=== PATIENT | male | born 1935 | race Two or more races ===

== ENCOUNTER 2023-06-04 10:17 | Observation (INO) ==
[2023-06-04 11:00] LABS: Basophils # (auto) 0.06 K/uL (0.00-0.20); Basophils % (auto) 0.4 %; Eosinophils # (auto) 0.02 K/uL (0.00-0.50); Eosinophils % (auto) 0.1 %; Hematocrit (blood only) 41.1 % (42.0-52.0); Hemoglobin 13.3 g/dl (14.0-18.0); Immature Granulocytes # (auto) 0.05 K/uL (0.01-0.20); Immature Granulocytes % (auto) 0.4 %; Lymphocytes # (auto) 0.76 K/uL (1.20-3.40); Lymphocytes % (auto) 5.7 %; Mean Corpuscular Hemoglobin 29.5 pg (25.0-34.0); Mean Corpuscular Hgb Conc 32.4 g/dL (32.0-36.0); Mean Corpuscular Volume 91.1 fL (80.0-100.0); Mean Platelet Volume 11.4 fL (9.4-12.4); Monocytes # (auto) 0.94 K/uL (0.11-0.59); Neutrophils # (auto) 11.56 K/uL (1.40-6.50); Neutrophils % (auto) 86.4 %; Platelet Count 181 K/uL (130-400); RDW Coefficient of Variation 13.4 % (11.5-14.5); RDW Standard Deviation 44.9 fL (36.4-46.3); Red Blood Count 4.51 M/uL (4.70-6.10); White Blood Count 13.39 K/ul (4.8-10.8)
[2023-06-04 11:03] LABS: Appearance Urine Cloudy (Clear); Bacteria Urine Automated Negative (Negative); Bilirubin Urine Negative (Negative); Blood Urine 3+ (Negative); Color Urine Yellow; Glucose Urine UA 1+ (Negative); Ketones Urine Negative (Negative); Leukocyte Esterase Urine Negative (Negative); Nitrite Urine Negative (Negative); Protein Urine Negative (Negative); Specific Gravity Urine 1.019 (1.000-1.030); Urobilinogen Urine Negative (Negative); pH Urine 5.5 (4.5-7.5)
[2023-06-04 11:07] LABS: INR 1.1 (0.9-1.1); Partial Thromboplastin Ratio 1.1; Partial Thromboplastin Time 31 Seconds (21-31); Prothrombin Time 11.9 Seconds (9.0-12.0)
[2023-06-04] MEDS: SODIUM CHLORIDE 0.9% 500 ML IV ONE (11:12)
[2023-06-04 11:17] LABS: Albumin Level 4.2 gm/dl (3.4-5.0); BUN Creatinine Ratio 18.4 (10-20); Bilirubin Direct 0.2 mg/dl (0-0.2); Bilirubin,Total 0.6 mg/dl (0.2-1.0); Creatinine Clr Calc Pharmacy 43.2 ml/min; Est GFR (African American) 60.5 ml/min; Est GFR (Non-African American) 52.2 ml/min; Potassium 3.9 mmol/L (3.5-5.1); Total Protein 6.7 gm/dl (6.0-8.3)
--- NOTE | 2023-06-04 11:30 | CT Scan Report ---
CT SCAN OF THE BRAIN WITHOUT IV CONTRAST CLINICAL HISTORY: Nausea COMPARISON STUDY: No priors. TECHNIQUE: Unenhanced axial CT scan of the brain is performed from the vertex to the skull base. A do se lowering technique was utilized adhering to the principles of ALARA. FINDINGS: Brain parenchyma: There is age-related involutional change noting moderate subcortical and periventr icular microangiopathic disease. There is no hemorrhage, mass effect, or evidence of acute territoria l ischemia by CT criteria. Trejo-white matter differentiation is preserved. No extra-axial fluid colle ction is seen. Ventricles, sulci, cisterns: Prominent secondary to involutional change. Intracranial vasculature: There is atherosclerotic calcification of the cavernous carotid and vertebr al arteries. Calvarium: Unremarkable. Sinuses and mastoids: The visualized paranasal sinuses are clear. The mastoid air cells are well pneu matized. Orbits: The bony orbits are grossly intact. There are bilateral ocular lens implants. IMPRESSION: There is no hemorrhage, mass effect, or evidence of acute territorial ischemia by CT manjit timmons. ACT 112: Negative or not required by law. Electronically signed by: Umesh Dumont M.D. 06/04/2023 11:29 AM
[2023-06-04] MEDS: ONDANSETRON INJ 2 MG/ML 2 ML VIAL IV STA (11:45)
[2023-06-04 11:58] LABS: Mucus Urine Present (None Prsent); RBC Urine Automated >30 /hpf (0-4)
--- NOTE | 2023-06-04 12:10 | CT Scan Report ---
CT SCAN OF THE ABDOMEN AND PELVIS WITHOUT IV CONTRAST CLINICAL HISTORY: Right flank pain COMPARISON STUDY: Abdominal CT dated 07/26/2021. TECHNIQUE: CT scan of the abdomen and pelvis is performed from the lung bases to the proximal femora. Images are reviewed in the axial, sagittal, and coronal planes. IV contrast was not administered for this examination. A dose lowering technique was utilized adhering to the principles of ALARA. CT DOSE: 1632.76 mGy.cm FINDINGS: Lung bases: There is evidence of previous aortic valve surgery. The heart is enlarged noting a small pericardial effusion. The coronary arteries are densely calcified. There are calcified splenic granul omas. There are scattered calcified granulomas. Scarring/atelectasis is noted at both lung bases. No airspace consolidation or pleural effusion is identified. A small hiatal hernia is noted. Liver: The unenhanced liver is normal in size, contour, and attenuation. There is no intrahepatic hoang iary ductal dilatation. Gallbladder: Unremarkable. Spleen: Normal in size and attenuation. Pancreas: Unremarkable. Adrenal glands: Unremarkable. Kidneys: The unenhanced kidneys are normal in size. There is a 6 mm obstructing calculus protruding f rom the right vesicoureteral junction seen on image #291. This causes moderate to severe right hydrou reteronephrosis. There is associated right-sided perinephric stranding and fluid. No additional calcu li are identified in either kidney. There is no left-sided hydronephrosis. A 2 cm cyst is noted on th e left. Abdominal vasculature: There is advanced atherosclerotic calcification and mild ectasia of the abdomi nal aorta. Bowel: There are scattered colonic diverticula without CT evidence of acute diverticulitis. No bowel obstruction is seen. Mild fecal retention is noted throughout the colon. The appendix is well-visual ized and normal. Peritoneum: There is no intraperitoneal free air or abdominal ascites. There is a small fat-containin g umbilical hernia. Lymphadenopathy: None. Pelvic viscera: Evaluation of the pelvis is degraded by streak artifact from bilateral hip arthroplas ties. The prostate gland is markedly enlarged and heterogeneous. The bladder wall is thickened/trabec ulated indicating chronic outlet obstruction. Skeletal structures: The skeletal structures are osteopenic. Mild to moderate lumbosacral spondylosis is observed. No lytic or blastic lesions are seen. Bilateral hip arthroplasties are in place. IMPRESSION: 1. There is a 6 mm obstructing calculus protruding from the right vesicoureteral junction. This cause s moderate severe right-sided hydroureteronephrosis. 2. No additional calculi are identified in either kidney. 3. Cardiomegaly. 4. Additional findings as above. ACT 112: Negative or not required by law. Electronically signed by: Umseh Dumont M.D. 06/04/2023 12:08 PM
--- NOTE | 2023-06-04 12:48 | History & Physical Report ---
Date of Service June 04, 2023 Assessment & Plan (1) Nephrolithiasis: Plan: Patient's daughter Evelyn Oliveira for collateral and surgical consent can be reached at [phone] Obstructive Nephrolithiasis - CTA/P: 6mm obstructing R UVJ stone with mod-severe hydro. UA is not infected appearing. Pt has a leukocytosis without L shift. - WBC 14. Patient has had chills. Covered with Rocephin -Anticoagulation temporarily switched to heparin - Flomax, fluids ordered Urology consulted No SKYLAR Multimodal pain control, Zofran (2) BPH (benign prostatic hyperplasia): Plan: Bladder scan as needed. Finasteride continued. Flomax added (3) Diabetes mellitus with neuropathy: Plan: T2DM - Metformin held - n.p.o. When diet advanced DM2, basal bolus weight-based. Metformin held (4) Permanent atrial fibrillation: Plan: Permanent Afib, history of TAVR No known history of ischemic disease or heart failure - Switched to heparin while inpatient at next scheduled dosing (~9-10pm), resume Eliquis 5 twice daily on discharge -Was switched from carvedilol to amlodipine for blood pressure goal due to potential concern of mild lightheadedness No evidence of acute ischemia on admission. No chest pain, chest pressure. Patient denies syncope/presyncope/exertional angina or shortness of breath (5) S/P TAVR (transcatheter aortic valve replacement): (6) HTN (hypertension): Plan: HTN - Amlodipine, valsartan continued Patient is hypertensive 200s on reassessment. Pain control ordered, on reassessment if he remains significantly elevated --> labetelol x1 Plan DVT prophylaxis: Anticoagulated Disposition: PCU for IV beta-josephine availability CODE STATUS: DNR/DNI Diet: N.p.o. History of Present Illness Primary Care Provider: Janelle of [facility] is an 87-year-old male with a past medical history of BPH, hypertension, permanent A-fib on apixaban, and s/p TAVR [facility] resident. Woke up this morning with chills, nasuea, fatigue and R flank pain. History of kidney stone in January which was nonob structive at the time. Just moved here in March from [facility]. [place] normal yesterday NO chest pain or chest pressure No shortness of breath No dysuria. +polyuria. Hx of afib. Took blood thinner this morning. (took all AM meds) Hx of tavr. Denies heart failure, denies CO. Has not yet established with cardiology locally, would like an outpatient referral if possible. Medical History: Reviewed Medications: Reviewed. NKDA Surgical History: Reviewed Family history: Reviewed Allergies: Reviewed Social History: No tobacco use. No etoh. Code Status: DNR/DNI Daughter contact #: [phone] Evelyn Oliveira CThead: No acute findings EKG: afib, no acute ischemic change Allergies Allergy/AdvReac Type Severity Reaction Status Date / Time No Known Drug Allergies Allergy Verified 03/23/23 09:15 Home Medications Medication Instructions Recorded Confirmed Type alpha lipoic acid 600 mg tablet 600 mg PO DAILY 03/23/23 03/23/23 History amlodipine 5 mg tablet 5 mg PO DAILY 03/23/23 03/23/23 History apixaban 5 mg (74 tabs) tablets in 5 mg PO BID 03/23/23 03/23/23 History a dose pack (Eliquis) calcium carbonate-vitamin D3 PO DAILY 03/23/23 03/23/23 History [Calcium 600 with Vitamin D3] coenzyme Q10 60 mg capsule 60 mg PO BID 03/23/23 03/23/23 History diclofenac sodium 1 % topical gel 2 g topical TID 03/23/23 03/23/23 History finasteride 5 mg tablet 5 mg PO DAILY 03/23/23 03/23/23 History mecobalamin (vitamin B12) 500 mcg 500 mcg PO DAILY 03/23/23 03/23/23 History chewable tablet metformin 500 mg tablet 500 mg PO DAILY 03/23/23 03/23/23 History ondansetron HCl 4 mg tablet 4 mg PO Q8H 03/23/23 03/23/23 History sertraline 25 mg tablet 25 mg PO DAILY 03/23/23 03/23/23 History simvastatin 80 mg tablet 80 mg PO DAILY 03/23/23 03/23/23 History valsartan 160 mg tablet 160 mg PO DAILY 03/23/23 03/23/23 History Past Med/Surg History Surgical History S/P rotator cuff repair H/O nasal septoplasty S/P TAVR (transcatheter aortic valve replacement) (2021) Social History Smoking Status: Never smoker Preferred Language: Samoan Feels Safe at Home: Yes Physical Exam Physical Exam: General: Alert and oriented to name NAD. Cooperative. HEENT: Atraumatic, normocephalic. Vision and hearing intact Pulm: CTAB A&P. -wheezes, -rales, -rhonchi. Symmetrical chest rise. No increased work of breathing. No respiratory distress. Cardiac: RRR, -mrg. Radial pulses intact and symmetrical. Abdominal: Mild right lower quadrant abdominal discomfort on palpation, no rebound tenderness, no guarding nondistended, soft. BS present. Results & Data Results & Data Vital Signs (Past 12 Hours) Vital Signs Temp Pulse Pulse Resp BP BP Pulse Ox 06/04/23 12:24 66 06/04/23 11:54 69 13 195/91 H 96 06/04/23 10:20 36.5 C 80 14 196/81 H 98 O2 Del Method 06/04/23 12:24 06/04/23 11:54 Room Air 06/04/23 10:20 Room Air PG Care Time/CCT Total # of Minutes Spent Total Time Spent with Patient: Total time spent is greater than 50% in coordination of care (as documented) at patient's floor/unit and/or counseling patient: Coding Level of Care Code 03892 INT INP/OBS CARE 3/75MIN Diagnoses Nephrolithiasis N20.0 BPH (benign prostatic hyperplasia) N40.0 Diabetes mellitus with neuropathy E11.40 Permanent atrial fibrillation I48.21 S/P TAVR (transcatheter aortic valve replacement) Z95.2 HTN (hypertension) I10
[2023-06-04] MEDS: KETOROLAC TROMETHAMINE 15 MG/ML VIAL IV STA (13:09)
[2023-06-04] MEDS ORDERED: HYDROmorphone INJ 0.5 MG/0.5 ML SYR IV PRN (13:19)
[2023-06-04] MEDS ORDERED: GLUCOSE 10 TAB/TUBE PO PRN (13:19)
[2023-06-04] MEDS ORDERED: HYDROmorphone INJ 1 MG/ML SYRINGE IV PRN (13:19)
[2023-06-04] MEDS ORDERED: ACETAMINOPHEN 1,000 MG/100 ML VIAL IV PRN (13:19)
[2023-06-04] MEDS ORDERED: CARBOHYDRATES FOR HYPOGLYCEMIA PO PRN (13:19)
[2023-06-04] MEDS ORDERED: DEXTROSE 50% 50 ML SYRINGE IV PRN (13:19)
[2023-06-04] MEDS ORDERED: GLUCOSE 40% GEL 15 GM TUBE PO PRN (13:19)
[2023-06-04] MEDS ORDERED: GLUCAGON FOR INJ 1 MG VIAL SQ PRN (13:19)
[2023-06-04] MEDS ORDERED: Heparin IV Adult Wt-Based Low-Dose *NO* INITIAL Bolus Protocol IV SCH (13:30)
[2023-06-04] MEDS: LABETALOL HCL IV 5 MG/ML 20ML IV STA (13:59)
[2023-06-04] MEDS: TAMSULOSIN HCL 0.4 MG CAP PO ONE (14:12)
[2023-06-04] MEDS: PLASMA-LYTE A 1,000 ML IV SCH (14:13)
--- NOTE | 2023-06-04 14:32 | Emergency Department Note ---
History of Present Illness General Chief Complaint: Illness Stated Complaint: BP HIGH, 190/80 Time Seen by Provider: 06/04/23 10:32 History of Present Illness Provider Complaint: abdominal pain and flank pain Onset (ago): 2 day(s) Pain Consistency: constant Location: R flank Migration to: RLQ Severity: moderate Maximum Pain Intensity: 6 Current Pain Intensity: 6 Quality: + stabbing and + sharp Relieved By: + nothing Exacerbated By: + other (Urinating) Context: no foreign travel, no possible food poisoning, no sick contacts, no recent antibiotic use, no recent surgery/procedure or no recent injury Associated Symptoms: + nausea, + vomiting, + hematuria and + back pain; no diarrhea, no fever, no chills, no constipation, no hematemesis, no hematochezia, no melena, no headache, no chest pain and no breathing difficulty Home Medications Medication Instructions Recorded Confirmed Type alpha lipoic acid 600 mg tablet 600 mg PO DAILY 03/23/23 03/23/23 History amlodipine 5 mg tablet 5 mg PO DAILY 03/23/23 03/23/23 History apixaban 5 mg (74 tabs) tablets in 5 mg PO BID 03/23/23 03/23/23 History a dose pack (Eliquis) calcium carbonate-vitamin D3 PO DAILY 03/23/23 03/23/23 History [Calcium 600 with Vitamin D3] coenzyme Q10 60 mg capsule 60 mg PO BID 03/23/23 03/23/23 History diclofenac sodium 1 % topical gel 2 g topical TID 03/23/23 03/23/23 History finasteride 5 mg tablet 5 mg PO DAILY 03/23/23 03/23/23 History mecobalamin (vitamin B12) 500 mcg 500 mcg PO DAILY 03/23/23 03/23/23 History chewable tablet metformin 500 mg tablet 500 mg PO DAILY 03/23/23 03/23/23 History ondansetron HCl 4 mg tablet 4 mg PO Q8H 03/23/23 03/23/23 History sertraline 25 mg tablet 25 mg PO DAILY 03/23/23 03/23/23 History simvastatin 80 mg tablet 80 mg PO DAILY 03/23/23 03/23/23 History valsartan 160 mg tablet 160 mg PO DAILY 03/23/23 03/23/23 History Allergies Allergy/AdvReac Type Severity Reaction Status Date / Time No Known Drug Allergies Allergy Verified 03/23/23 09:15 Past Med/Surg History Medical History (Updated 06/04/23 @ 14:36 by Milind Partida MD) BPH (benign prostatic hyperplasia) Diabetes mellitus with neuropathy HTN (hypertension) Surgical History S/P rotator cuff repair H/O nasal septoplasty S/P TAVR (transcatheter aortic valve replacement) (2021) Social History Smoking Status: Never smoker Preferred Language: Japanese Feels Safe at Home: Yes Physical Exam 2 Vital Signs: Vital Signs - 24 hr 06/04/23 10:20 06/04/23 11:54 06/04/23 12:24 Temperature 36.5 C Temperature Source Temporal Artery Sc an Pulse Rate 80 66 Pulse Rate [Apical ] 69 Respiratory Rate 14 13 Respiratory Effort / Characteristics Non-Labored Respiratory Depth Normal Respiratory Patter n Regular Blood Pressure 196/81 H Blood Pressure [Le ft Arm] 195/91 H Blood Pressure Lucrecia n 119 Blood Pressure Lucrecia n [Left Arm] 125 Pulse Oximetry 98 96 Oxygen Delivery Me thod Room Air Room Air Sepsis New/Unexpla ined Change in Men vickie Status No Sepsis Action Take n by Nursing No Action Required 06/04/23 13:49 06/04/23 13:59 Temperature Temperature Source Pulse Rate 71 Pulse Rate [Apical ] 64 Respiratory Rate 13 Respiratory Effort / Characteristics Non-Labored Respiratory Depth Normal Respiratory Patter n Blood Pressure 182/83 H Blood Pressure [Le ft Arm] 182/83 H Blood Pressure Lucrecia n Blood Pressure Lucrecia n [Left Arm] 116 Pulse Oximetry 98 Oxygen Delivery Me thod Room Air Sepsis New/Unexpla ined Change in Men vickie Status Sepsis Action Take n by Nursing Physical Exam: Physical Exam GENERAL: She is oriented to person, place, and time. She appears well-developed and well-nourished. She does not appear distressed. HENT: Exam performed. -Head: Normocephalic and atraumatic. -Right Ear: External ear normal. No mastoid erythema -Left Ear: External ear normal. No mastoid erythema -Mouth/Throat: The oropharynx is clear and moist. No trismus in the jaw. No dental abscesses or uvula swelling. No oropharyngeal exudate or tonsillar abscesses. EYES: Conjunctivae and EOM are normal.Right eye exhibits no discharge. Left eye exhibits no discharge. No scleral icterus. NECK: Normal range of motion. Neck supple. No JVD present. No tracheal deviation and normal range of motion present. CV: Normal rate, irregular rhythm, normal heart sounds and intact distal pulses. There is no peripheral edema. Palpable radial pulses bue. PULM/CHEST: Effort normal and breath sounds normal. No respiratory distress. No stridor. She has no wheezes. She has no rales. -Chest Wall: She exhibits no tenderness. ABD: The abdomen is soft. Bowel sounds are normal. She has no distension. No mass is present. There is tenderness to the right lower quadrant. There is no rebound, no guarding. Right-sided CVA tenderness. MUSC/SKEL: Normal range of motion. There is no peripheral edema, tenderness or deformity. NEURO: Motor and sensation grossly intact. SKIN: Skin is warm and dry. She is not diaphoretic. PSYCH: She has a normal mood and affect. Behavior is normal. Judgment and thought content normal. Course Course 1032: The patient was evaluated in room B2. A complete history and physical exam was performed Cardiac monitoring: An order was placed for continuous cardiac monitoring. The monitor shows a rate of 60 with atrial fibrilation rhythm interpreted by me 1237: Vital signs stable. Labs within normal limits. Imaging shows a 6 mm stone at the right UVJ. Patient having too much pain. Patient will be admitted to medicine for pain control and for urology evaluation for possible removal of stone. Dr. Sam urology notified. Patient will be admitted to the [facility] hospitalist team. Administered Medications Parenteral Electrolytes (Plasma-Lyte A Ph 7.4) 1,000 mls @ 125 mls/hr IV .Q8H VEL Stop: 07/04/23 13:29 Last Admin: 06/04/23 14:13 Dose: 125 mls/hr Documented By: MADELINE Discontinued Medications Sodium Chloride (Nss) 500 mls @ 999 mls/hr IV .Q31M ONE Stop: 06/04/23 11:16 Last Infusion: 06/04/23 11:45 Dose: Infused Documented By: Admin: 06/04/23 11:12 Dose: 999 mls/hr Documented By: MADELINE Ketorolac Tromethamine (Ketorolac Tromethamine 15 Mg/Ml Vial) 15 mg IV NOW STA Stop: 06/04/23 12:33 Last Admin: 06/04/23 13:09 Dose: 15 mg Documented By: MADELINE Labetalol HCl (Labetalol Hcl Iv 5 Mg/Ml 20ml) 5 mg IV NOW STA Stop: 06/04/23 13:20 Last Admin: 06/04/23 13:59 Dose: 5 mg Documented By: MADELINE Co-signed By: TVAO Ondansetron HCl (Ondansetron Inj 2 Mg/Ml 2 Ml Vial) 4 mg IV NOW STA Stop: 06/04/23 10:47 Last Admin: 06/04/23 11:45 Dose: Not Given Documented By: MADELINE Tamsulosin HCl (Tamsulosin Hcl 0.4 Mg Cap) 0.4 mg PO NOW ONE Stop: 06/04/23 13:20 Last Admin: 06/04/23 14:12 Dose: 0.4 mg Documented By: MADELINE Medical Decision Making Laboratory Data Attestation: I reviewed the patient's lab results. 06/04/23 10:47 06/04/23 10:47 Lab Results 06/04/23 06/04/23 06/04/23 Range/Units 10:30 10:44 10:47 WBC 13.39 H (4.8-10.8) K/ul RBC 4.51 L (4.70-6.10) M/uL Hgb 13.3 L (14.0-18.0) g/dl Hct 41.1 L (42.0-52.0) % MCV 91.1 (80.0-100.0) fL MCH 29.5 (25.0-34.0) pg MCHC 32.4 (32.0-36.0) g/dL RDW Std Deviation 44.9 (36.4-46.3) fL RDW Coeff of Arnaud 13.4 (11.5-14.5) % Plt Count 181 (130-400) K/uL MPV 11.4 (9.4-12.4) fL Immature Gran % (Auto) 0.4 % Neut % (Auto) 86.4 % Lymph % (Auto) 5.7 % Hoke % (Auto) 7.0 % Eos % (Auto) 0.1 % Baso % (Auto) 0.4 % Neut # (Auto) 11.56 H (1.40-6.50) K/uL Lymph # (Auto) 0.76 L (1.20-3.40) K/uL [place] # (Auto) 0.94 H (0.11-0.59) K/uL Eos # (Auto) 0.02 (0.00-0.50) K/uL Baso # (Auto) 0.06 (0.00-0.20) K/uL Immature Gran # (Auto) 0.05 (0.01-0.20) K/uL PT 11.9 (9.0-12.0) Seconds INR 1.1 (0.9-1.1) APTT 31 (21-31) Seconds PTT Ratio 1.1 Sodium 137 (136-145) mmol/L Potassium 3.9 (3.5-5.1) mmol/L Chloride 103 (98-107) mmol/L Carbon Dioxide 29 (21-32) mmol/L Anion Gap 5 (3-11) BUN 23 (6-23) mg/dl Creatinine 1.25 (0.6-1.4) mg/dl Est Cr Clr Drug Dosing 43.2 ml/min Est GFR ( Amer) 60.5 ml/min Est GFR (Non-Af Amer) 52.2 ml/min BUN/Creatinine Ratio 18.4 (10-20) Glucose 215 H (70-99(Fasting)) mg/dl Calcium 9.0 (8.6-10.3) mg/dl Total Bilirubin 0.6 (0.2-1.0) mg/dl Direct Bilirubin 0.2 (0-0.2) mg/dl AST 19 (13-39) U/L ALT 14 (7-52) U/L Alkaline Phosphatase 69 (34-104) U/L Total Protein 6.7 (6.0-8.3) gm/dl Albumin 4.2 (3.4-5.0) gm/dl Lipase 15 (11-82) U/L Urine Color Yellow Urine Appearance Cloudy A (Clear) Urine pH 5.5 (4.5-7.5) Ur Specific [place] 1.019 (1.000-1.030) Urine Protein Negative (Negative) Urine Glucose (UA) 1+ H (Negative) Urine Ketones Negative (Negative) Urine Blood 3+ H (Negative) Urine Nitrite Negative (Negative) Urine Bilirubin Negative (Negative) Urine Urobilinogen Negative (Negative) Ur Leukocyte Esterase Negative (Negative) Urine WBC (Auto) 1-5 (0-5) /hpf Urine RBC (Auto) >30 H (0-4) /hpf U Hyaline Cast (Auto) 1-5 (0-5) /lpf U Epithel Cells (Auto) 5-10 H (0-5) /lpf Urine Bacteria (Auto) Negative (Negative) Urine Mucus Present A (None Prsent) Urine Yeast Not Reportable Imaging Data Radiologist's Impression: Abdomen/Pelvis CT 06/04/23 10:47 CT SCAN OF THE ABDOMEN AND PELVIS WITHOUT IV CONTRAST CLINICAL HISTORY: Right flank pain COMPARISON STUDY: Abdominal CT dated 07/26/2021. TECHNIQUE: CT scan of the abdomen and pelvis is performed from the lung bases to the proximal femora. Images are reviewed in the axial, sagittal, and coronal planes. IV contrast was not administered for this examination. A dose lowering technique was utilized adhering to the principles of ALARA. CT DOSE: 1632.76 mGy.cm FINDINGS: Lung bases: There is evidence of previous aortic valve surgery. The heart is enlarged noting a small pericardial effusion. The coronary arteries are densely calcified. There are calcified splenic granulomas. There are scattered calcified granulomas. Scarring/atelectasis is noted at both lung bases. No airspace consolidation or pleural effusion is identified. A small hiatal hernia is noted. Liver: The unenhanced liver is normal in size, contour, and attenuation. There is no intrahepatic biliary ductal dilatation. Gallbladder: Unremarkable. Spleen: Normal in size and attenuation. Pancreas: Unremarkable. Adrenal glands: Unremarkable. Kidneys: The unenhanced kidneys are normal in size. There is a 6 mm obstructing calculus protruding from the right vesicoureteral junction seen on image #291. This causes moderate to severe right hydroureteronephrosis. There is associated right-sided perinephric stranding and fluid. No additional calculi are identified in either kidney. There is no left-sided hydronephrosis. A 2 cm cyst is noted on the left. Abdominal vasculature: There is advanced atherosclerotic calcification and mild ectasia of the abdominal aorta. Bowel: There are scattered colonic diverticula without CT evidence of acute diverticulitis. No bowel obstruction is seen. Mild fecal retention is noted throughout the colon. The appendix is well-visualized and normal. Peritoneum: There is no intraperitoneal free air or abdominal ascites. There is a small fat-containing umbilical hernia. Lymphadenopathy: None. Pelvic viscera: Evaluation of the pelvis is degraded by streak artifact from bilateral hip arthroplasties. The prostate gland is markedly enlarged and heterogeneous. The bladder wall is thickened/trabeculated indicating chronic outlet obstruction. Skeletal structures: The skeletal structures are osteopenic. Mild to moderate lumbosacral spondylosis is observed. No lytic or blastic lesions are seen. Bilateral hip arthroplasties are in place. IMPRESSION: 1. There is a 6 mm obstructing calculus protruding from the right vesicoureteral junction. This causes moderate severe right-sided hydroureteronephrosis. 2. No additional calculi are identified in either kidney. 3. Cardiomegaly. 4. Additional findings as above. ACT 112: Negative or not required by law. Electronically signed by: Umesh Dumont M.D. 06/04/2023 12:[address] 06/04/23 10:47 CT SCAN OF THE BRAIN WITHOUT IV CONTRAST CLINICAL HISTORY: Nausea COMPARISON STUDY: No priors. TECHNIQUE: Unenhanced axial CT scan of the brain is performed from the vertex to the skull base. A dose lowering technique was utilized adhering to the principles of ALARA. FINDINGS: Brain parenchyma: There is age-related involutional change noting moderate subcortical and periventricular microangiopathic disease. There is no hemorrhage, mass effect, or evidence of acute territorial ischemia by CT criteria. Trejo-white matter differentiation is preserved. No extra-axial fluid collection is seen. Ventricles, sulci, cisterns: Prominent secondary to involutional change. Intracranial vasculature: There is atherosclerotic calcification of the cavernous carotid and vertebral arteries. Calvarium: Unremarkable. Sinuses and mastoids: The visualized paranasal sinuses are clear. The mastoid air cells are well pneumatized. Orbits: The bony orbits are grossly intact. There are bilateral ocular lens implants. IMPRESSION: There is no hemorrhage, mass effect, or evidence of acute territorial ischemia by CT criteria. ACT 112: Negative or not required by law. Electronically signed by: Umesh Dumont M.D. 06/04/2023 11:29 AM ECG Data Attestation: I personally reviewed and interpreted this ECG as follows: Indication: abdominal pain Rate (beats per minute): 74 Rhythm: atrial fibrillation Findings: no ST depression, no ST elevation or no prolonged QT [facility] Narrative 1032: The patient was evaluated in room B2. A complete history and physical exam was performed Cardiac monitoring: An order was placed for continuous cardiac monitoring. The monitor shows a rate of 60 with atrial fibrilation rhythm interpreted by me 1237: Vital signs stable. Labs within normal limits. Imaging shows a 6 mm stone at the right UVJ. Patient having too much pain. Patient will be admitted to medicine for pain control and for urology evaluation for possible removal of stone. Dr. Sam urology notified. Patient will be admitted to the [facility] hospitalist team. Impression & Plan Hydronephrosis with renal calculous obstruction Discharge Plan Visit Data Chief Complaint: Illness Stated Complaint: BP HIGH, 190/80 ED Provider: Milind Partida Discharge Problem: Hydronephrosis with renal calculous obstruction Patient Disposition: Admitted As Inpatient Forms Stand Alone Forms: My [facility] [address] Prescriptions Prescriptions: No Action simvastatin 80 mg tablet 80 mg PO DAILY finasteride 5 mg tablet 5 mg PO DAILY calcium carbonate-vitamin D3 [Calcium 600 with Vitamin D3] PO DAILY Eliquis 5 mg (74 tabs) tablets,dose pack 5 mg PO BID amlodipine 5 mg tablet 5 mg PO DAILY sertraline 25 mg tablet 25 mg PO DAILY metformin 500 mg tablet 500 mg PO DAILY ondansetron HCl 4 mg tablet 4 mg PO Q8H valsartan 160 mg tablet 160 mg PO DAILY mecobalamin (vitamin B12) 500 mcg tablet,chewable 500 mcg PO DAILY diclofenac sodium 1 % gel 2 g topical TID Rx Instructions: apply to single elbow, wrist or hand; for hand includes palm/fingers/back of hand coenzyme Q10 60 mg capsule 60 mg PO BID alpha lipoic acid 600 mg tablet 600 mg PO DAILY Referrals Referrals: [facility]elle [place] [Primary Care Provider] -
[2023-06-04] MEDS: cefTRIAXone SODIUM 1,000 MG in DEXTROSE 5 % MINI-B 50 ML IV SCH (14:33)
[2023-06-04] MEDS ORDERED: LABETALOL HCL IV 5 MG/ML 20ML IV PRN (15:30)
--- NOTE | 2023-06-04 18:22 | Urology Consultation ---
Date of Consultation June 04, 2023 Assessment & Plan (1) Nephrolithiasis: (2) Gross hematuria: (3) Hydronephrosis with renal calculous obstruction: (4) S/P TAVR (transcatheter aortic valve replacement): Plan Patient seen in the ER. Has a 5 mm obstructing stone in the very distal portion of the ureter with partial projection into the bladder. Causing considerable hydronephrosis with significant signs of perinephric stranding and irritation. Patient is on blood thinner. Has had some blood in the urine. Had been worked up for gross hematuria approximately [address] Paige. At the time had been found to have a 5 mm stone in the kidney. Patient recently lost his and has been under a great deal of stress per the patient's daughter. Extensive conversation with patient's daughter after the visit. Patient has been dealing with some mild confusion in the ER has been frustrated due to waiting on a bed for the floor. Is getting admitted on broad- spectrum antibiotics. A conversation was had afterwards which did help alleviate some of the stress. Discussed different options for the intervention and treatment of the stone if necessary. Patient's imaging was reviewed interpreted by myself. Significant hydronephrosis and perinephric swelling of the right kidney with stone in the very distal portion of the right ureter with a portion of the stone appearing to be very projecting into the bladder. Consistent with the previous stone seen on prior imaging. Reviewed extensively patient's ongoing issues. Is not having severe pain at this point. Has not had major fevers or chills. All vitals were reviewed. Current pulse is 62 blood pressure 166/75 temperature was 36.5 and was satting 100% on room air. All labs were reviewed pertinent values in the HPI or plan section. White count was 13.39. Creatinine was 1.25. PSA from April was 1.242. Hemoglobin was 13.3. Extensive conversation about different options with both the patient and then afterwards with the patient's daughter. Extensively reviewed options. Patient's other daughter is in the area and will be helping with medical decision making especially if the procedure is eventually needed. Did discuss different options if patient becomes acutely febrile decompensates or develops signs of sepsis or other major issue could consider moving more urgently for intervention. Did discuss maximum expulsion therapy and possible passage. With the size and location of the stone would have a very high chance for passing of the bladder once in the bladder would likely be able to be avoided off without major issue. Did extensively review this with patient. Discussed possibly blood in the urine and other issues. Reviewed different options moving forward. Multiple questions answered. Will plan for supportive care. Will plan for hydration and monitoring. Did discuss different options for management of stone. Discussed options for conservative measure and maximum expulsion medical therapy and symptom controlled. Discussed ESWL. Discussed Ureteroscopy with extraction and/or laser lithotripsy. Risks and benefits were discussed. Stone free rates were also discussed as well as possibility of multiple procedures. Ureteral stents were discussed as well as post-operative issues and pain management. All questions were answered. Reviewed options moving forward. Will plan for observation. Patient is admitted and will be likely monitored on the floor. Will be n.p.o. after midnight for possible procedure tomorrow if stone does not appear to pass within the next few hours. Discussed possibly being able to do the procedure under sedation due to the location possibly able to be grasped without need for extensive ureteroscopy. I discussed risk related to anesthesia specifically with the patient's known memory/dementia issues. Patient complicated medical and surgical history was reviewed and summarized above imaging was reviewed interpreted by myself and the labs vitals were reviewed with pertinent values in HPI plan section. Plan continue to monitor. History of Present Illness Attending Physician: Dima Turner MD History of Present Illness New consultation for patient with stone, discomfort, obstruction, and ill feelings. Patient developed sudden onset of pain into flank going down and radiating into groin and back in waves comes and goes. Can be severe at times. Patient does have some baseline dementia issues. His had recently approximately month ago. Has been under a lot of stress. Spoke extensively with the patient's daughter after meeting with the patient. Spoke to her via phone as she is in [place] visiting and another relative. Patient's other daughter is in the area right now and her phone number is available for further information. Discussed and reviewed patient's family history for any history of stone disease. Also, discussed patient's medical surgery history especially related to any history of urinary issues or stone disease. Patient was admitted and is undergoing observation. Allergies Allergy/AdvReac Type Severity Reaction Status Date / Time No Known Drug Allergies Allergy 0 Verified 06/04/23 16:36 Home Medications Medication Instructions Recorded Confirmed Type acetaminophen 325 mg tablet 650 mg PO Q4 PRN Fever Or Pain 06/04/23 06/04/23 History (Tylenol) apixaban 5 mg tablet (Eliquis) 5 mg PO BID 06/04/23 06/04/23 History buspirone 5 mg tablet 5 mg PO BID 06/04/23 06/04/23 History diclofenac sodium 1 % topical gel 2 g topical QID PRN Pain 06/04/23 06/04/23 History finasteride 5 mg tablet 5 mg PO QAM 06/04/23 06/04/23 History metformin 500 mg tablet 500 mg PO QAM 06/04/23 06/04/23 History [id number] 1 tab PO DAILY 06/04/23 06/04/23 History tablet (Multivitamin 50 Plus tablet) ondansetron HCl 4 mg tablet 4 mg PO Q8 PRN Nausea 06/04/23 06/04/23 History sertraline 25 mg tablet 25 mg PO HS 06/04/23 06/04/23 History simvastatin 80 mg tablet 80 mg PO HS 06/04/23 06/04/23 History solifenacin 5 mg tablet 5 mg PO HS 06/04/23 06/04/23 History valsartan 160 mg tablet 160 mg PO QAM 06/04/23 06/04/23 History Patient History Medical History BPH (benign prostatic hyperplasia) Diabetes mellitus with neuropathy HTN (hypertension) Surgical History S/P rotator cuff repair H/O nasal septoplasty S/P TAVR (transcatheter aortic valve replacement) (2021) Social History Smoking Status: Never smoker Preferred Language: [place] Citizen Feels Safe at Home: Yes Review of Systems Review of Systems: All systems reviewed & are unremarkable except as noted in HPI & below and Other (Limited due to dementia history.) Physical Exam Physical Exam: General: Alert and oriented in no acute distress. Baseline memory issues with dementia. Mild ongoing confusion issues. HEENT: Normocephalic Atraumatic. Inspection normal. Cranial Nerves 2-12 Grossly intact. Nares are clear. Neck is supple. Normal inspection of face. Normal inspection of neck. Neurologic: No deficits on inspection. Baseline for motor function and sensory. Psychologic: Normal affect with episodes of mild confusion and baseline dementia issues. Respiratory: Nonlabored. No use of accessory muscles. No tachypnea or dyspnea. Cardiovascular: No tachycardia Skin: [place] and Dry. No rashes or visible lesions. Extremities: Moving without issues. No motor deficits on inspection Lymphatics: No edema Abdomen: Soft Non-distended. No rebound or guarding. Results & Data Vital Signs (Past 12 Hours) Vital Signs Temp Pulse Pulse Resp BP BP Pulse Ox 06/04/23 17:04 62 18 166/75 H 06/04/23 16:25 59 L 06/04/23 15:19 59 L 18 100 06/04/23 15:19 59 L 18 168/66 H 100 06/04/23 14:31 63 168/82 H 06/04/23 13:59 71 182/83 H 06/04/23 13:49 64 13 182/83 H 98 06/04/23 12:24 66 06/04/23 11:54 69 13 195/91 H 96 06/04/23 10:20 36.5 C 80 14 196/81 H 98 O2 Del Method 06/04/23 17:04 06/04/23 16:25 06/04/23 15:19 Room Air 06/04/23 15:19 Room Air 06/04/23 14:31 06/04/23 13:59 06/04/23 13:49 Room Air 06/04/23 12:24 06/04/23 11:54 Room Air 06/04/23 10:20 Room Air PG Care Time/CCT Total # of Minutes Spent Total Time Spent with Patient: Total time spent is greater than 50% in coordination of care (as documented) at patient's floor/unit and/or counseling patient: Coding Level of Care Code 98310 INT INP/OBS CARE 375MIN Diagnoses Nephrolithiasis N20.0 Gross hematuria R31.0 Hydronephrosis with renal calculous obstruction N13.2 S/P TAVR (transcatheter aortic valve replacement) Z95.2
[2023-06-04] MEDS: INSULIN ASPART PER UNIT CHARGE SC SCH (19:20)
[2023-06-04] MEDS: HEPARIN SODIUM/DEXTROSE 25,000 UNITS/500 ML BAG IV SCH (22:13)
[2023-06-04] MEDS: LANTUS PER UNIT CHARGE SQ SCH (22:18)
[2023-06-05 04:42] LABS: Basophils # (auto) 0.06 K/uL (0.00-0.20); Basophils % (auto) 0.9 %; Eosinophils # (auto) 0.14 K/uL (0.00-0.50); Hematocrit (blood only) 33.8 % (42.0-52.0); Hemoglobin 11.1 g/dl (14.0-18.0); Immature Granulocytes # (auto) 0.03 K/uL (0.01-0.20); Immature Granulocytes % (auto) 0.4 %; Lymphocytes # (auto) 1.34 K/uL (1.20-3.40); Lymphocytes % (auto) 19.5 %; Mean Corpuscular Hemoglobin 29.3 pg (25.0-34.0); Mean Corpuscular Hgb Conc 32.8 g/dL (32.0-36.0); Mean Corpuscular Volume 89.2 fL (80.0-100.0); Mean Platelet Volume 11.2 fL (9.4-12.4); Monocytes # (auto) 0.59 K/uL (0.11-0.59); Monocytes % (auto) 8.6 %; Neutrophils # (auto) 4.71 K/uL (1.40-6.50); Neutrophils % (auto) 68.6 %; Platelet Count 132 K/uL (130-400); RDW Coefficient of Variation 13.4 % (11.5-14.5); RDW Standard Deviation 44.3 fL (36.4-46.3); Red Blood Count 3.79 M/uL (4.70-6.10); White Blood Count 6.87 K/ul (4.8-10.8)
[2023-06-05 04:56] LABS: BUN Creatinine Ratio 15.4 (10-20); Calcium 8.1 mg/dl (8.6-10.3); Creatinine Clr Calc Pharmacy 51.9 ml/min; Est GFR (African American) 75.5 ml/min; Est GFR (Non-African American) 65.2 ml/min; Potassium 3.6 mmol/L (3.5-5.1)
[2023-06-05 05:56] LABS: ANTI-Xa, UFH(UnfractionatedHep 0.72 IU/ml (0.3-0.7)
--- NOTE | 2023-06-05 08:36 | Ultrasound Report ---
RENAL ULTRASOUND HISTORY: Follow-up study in a patient with renal calculi stone, hydro COMPARISON: CT 06/04/2023 FINDINGS: Right kidney: 11.5 cm. There is a 6 mm calculus within the right dependent urinary bladder distributi on. Mild right-sided hydronephrosis. Normal corticomedullary differentiation and cortical thickness. Left kidney: 10.3 cm. 2 cm cyst of the inferior pole. No hydronephrosis. Prostatomegaly. Bladder wall thickening with trabeculation. Right ureteral jet not identified. Bladder: No bladder wall thickening. The bilateral ureteral jets were identified. IMPRESSION: 1. A 6 mm calculus is noted within either the intramural distal portion of the right ureterovesicular junction or dependent urinary bladder. The right ureteral jet is not identified 2. Mild right-sided hydronephrosis. 3. Prostatomegaly with evidence of chronic outlet obstruction. ACT 112: Negative or not required by law. Electronically signed by: Jasbir Garcia M.D. 06/05/2023 8:34 AM
[2023-06-05] MEDS: SERTRALINE HCL 50 MG TABLET PO SCH (08:43)
[2023-06-05] MEDS: amLODIPine BESYLATE 5 MG TAB PO SCH (08:43)
[2023-06-05] MEDS: FINASTERIDE 5 MG TAB PO SCH (08:43)
--- NOTE | 2023-06-05 08:43 | Urology Progress Note ---
Date of Service June 05, 2023 Assessment & Plan (1) Right ureteral stone: (2) Hydronephrosis: Plan 87yo M admitted with right flank pain, chills, and nausea secondary to a 6mm obstructing R UVJ stone with mod-severe hydro. - JAMEY today reviewed - 6 mm calculus is noted within either the intramural distal portion of the R UVJ or dependent urinary bladder, Mild right-sided hydronephrosis, Prostatomegaly with evidence of chronic outlet obstruction. - Afebrile and hemodynamically stable. - Labs today - WBC 6.87, Hemoglobin 11.1, Creatinine 1.04. - UA not infected appearing. - Voiding spontaneously, continue to monitor. - Discussed options for conservative measure and maximum expulsion medical therapy and symptom controlled. Stone passage rates given size and location were reviewed. Discussed Ureteroscopy with extraction and/or laser lithotripsy. Risks and benefits were discussed. Stone free rates were also discussed as well as possibility of multiple procedures. Ureteral stents were discussed as well as post-operative issues and pain management. All questions were answered. - Will plan to proceed to OR today for cystoscopy, right retrograde pyelogram, right ureteral stent placement, possible ureteroscopy, laser lithotripsy/stone treatment depending on findings. - Risks and benefits to be reviewed with patient/family by Dr. Sam. OR notified. - Keep NPO. - Continue to strain all urine. - Covered with IV Ceftriaxone. - Discussed via telephone call with patient's daughter Evelyn who is agreeable to proceeding with stone treatment/stent placement today. - Urology will follow. Attending note: Patient independently assessed, examined, interviewed, and evaluated. Agree with note as above. Patient's vitals and labs were all reviewed. Pertinent values in the HPI and plan section. Imaging was reviewed interpreted by myself. Agree with read. Vitals were reviewed. Discussed findings extensively with patient and family. Reviewed with nurse practitioner as well as consulting physicians/team. Patient's complicated medical and surgical history was reviewed and summarized above. Patient's surgical, medical, social, and family history were all reviewed with pertinent values as above. Discussed patient's current diagnosis as well as concerns and issues. Reviewed different options moving forward. Discussed potential risks and benefits as well as possible options and concerns. Reviewed potential surgical options and interventions. Discussed potential issues and concerns related to intervention. Risk and benefits were discussed extensively with patient and any available family. Discussed potential risks related to anesthesia. Discussed risks of bleeding infection and injury. Risks and benefits discussed at length for procedure. These include bleeding, infection, injury to surrounding tissues or organs, and risks associated with anesthesia. Patient states understanding and agrees to proceed. Will sign consent and schedule. Plan for Cystoscopy with possible right ureteroscopy and stone treatment. Admission and Anticipated Discharge Date Admission Date: June 04, 2023 Subjective Pt examined at bedside this AM. Awake, resting in bed on arrival. No acute distress. Has been NPO. Denies any noticeable stone passage. Pain well controlled at present. Denies f/c/n/v. Voiding without issue. Review of Systems Constitutional: as per Subjective / HPI Gastrointestinal: as per Subjective / HPI Genitourinary: + as per Subjective / HPI Physical Exam Constitutional: no acute distress Respiratory: no respiratory distress and no labored breathing Skin: No visible rashes or lesions to exposed skin areas Neurologic: awake Psychiatric: Orientation: alert, oriented to person and cooperative Results & Data Vital Signs (Past 12 Hours) Vital Signs Temp Pulse Pulse Resp BP Pulse Ox O2 Del Method 06/05/23 07:18 36.5 C 98 H 18 172/74 H 98 Room Air 06/05/23 03:34 36.6 C 53 L 18 125/62 97 Room Air 06/04/23 23:02 36.6 C 63 18 169/71 H 97 Room Air 06/04/23 21:59 61 06/04/23 21:41 66 PG Care Time/CCT Total # of Minutes Spent Total Time Spent with Patient: Total time spent is greater than 50% in coordination of care (as documented) at patient's floor/unit and/or counseling patient: Coding Level of Care Code 37986 SUB INP/OBS CARE 2/35MIN Diagnoses Right ureteral stone N20.1 Hydronephrosis N13.30
[2023-06-05] MEDS: TAMSULOSIN HCL 0.4 MG CAP PO SCH (08:44)
[2023-06-05] MEDS: SIMVASTATIN 80 MG TAB PO SCH (08:44)
[2023-06-05] MEDS: VALSARTAN 80 MG TAB PO SCH (08:45)
--- NOTE | 2023-06-05 12:45 | Hospitalist Progress Note ---
Date of Service June 05, 2023 Assessment & Plan (1) Nephrolithiasis: Plan: Patient's daughter Evelyn Oliveira for collateral and surgical consent can be reached at [phone] . CTA/P: 6mm obstructing R UVJ stone with mod-severe hydro. UA is not infected appearing. Now on rocephin. He does not require heparin drip bridging. Eliquis is on hold. He is on Flomax and IV fluids. Urology consultation and recommendations appreciated. Cystoscopy will occur later today, June 04. (2) Diabetes mellitus with neuropathy: Plan: ADA diet. Metformin temporarily on hold. Sliding scale coverage as needed. He is insulin marylin and basal insulin therapy started on admission has been discontinued. (3) Permanent atrial fibrillation: Plan: Eliquis is on hold. No need for heparin drip bridging. Telemetry (4) S/P TAVR (transcatheter aortic valve replacement): Plan: No need for heparin drip bridging. Stable. (5) BPH (benign prostatic hyperplasia): Plan: Finasteride continued. Flomax has been added (6) HTN (hypertension): Plan: Stable. Continue amlodipine and valsartan. Plan Hopeful discharge to home tomorrow, June 05 Admission and Anticipated Discharge Date Admission Date: June 04, 2023 Subjective Alert and oriented. No new problems. Urology entry noted. He will go to the operating room today for cystoscopy and stone lithotripsy and probable placement of a right ureter stent. He is insulin marylin and Lantus started on admission has been discontinued. He also does not require a heparin drip at this time. This has been discontinued. Eliquis is on hold. IV fluids taper down to 80 mL/h. Hopefully he can go home tomorrow, June 05 Review of Systems 2 Review of Systems: Constitutional-no fever or chills ENT-no blurred vision, no double vision, no epistaxis, no sore throat Respiratory-no cough, no wheezing, no shortness of breath Cardiac-no palpitations, no chest pain, no syncope GI-no nausea, vomiting, diarrhea, melena, hematochezia -no urinary retention, no urinary incontinence, no dysuria Musculoskeletal-no joint pain, no muscle tenderness Skin-no bruising, no rashes, no pruritus Neuro-no isolated weakness, no paresthesia, no weakness Psych-no depression, no anxiety Physical Exam 2 Physical Exam: General-alert and oriented x3, no fever, no chills HEENT-head atraumatic and normocephalic, pupils equal and reactive to light, extraocular muscles intact Neck-no lymphadenopathy or thyromegaly, trachea midline Chest-clear to auscultation. No rales, wheezing or rhonchi Cardiac-irregular rhythm, controlled rate, normal S1 and S2 Abdomen-normal bowel sounds, nontender, no hepatosplenomegaly Extremities-no cyanosis, clubbing, or edema Neuro-cranial nerves II through XII intact, motor and sensory function within normal limits, strength symmetrical, no focal deficits Psych-normal affect, normal mood Results & Data Results & Data Vital Signs (Past 12 Hours) Vital Signs Temp Pulse Pulse Resp BP Pulse Ox O2 Del Method 06/05/23 10:52 36.5 C 55 L 16 187/72 H 98 Room Air 06/05/23 07:28 65 06/05/23 07:18 36.5 C 98 H 18 172/74 H 98 Room Air 06/05/23 03:34 36.6 C 53 L 18 125/62 97 Room Air Laboratory Results 06/05/23 04:17 06/05/23 04:17 PG Care Time/CCT Total # of Minutes Spent Total Time Spent with Patient: Total time spent is greater than 50% in coordination of care (as documented) at patient's floor/unit and/or counseling patient: Coding Level of Care Code 98436 SUB INP/OBS CARE 3/50MIN Diagnoses Nephrolithiasis N20.0 Diabetes mellitus with neuropathy E11.40 Permanent atrial fibrillation I48.21 S/P TAVR (transcatheter aortic valve replacement) Z95.2 BPH (benign prostatic hyperplasia) N40.0 HTN (hypertension) I10
[2023-06-05] MEDS: LACTATED RINGER'S 1,000 ML IV SCH (13:39)
[2023-06-05] MEDS ORDERED: MIDAZOLAM HCL 1 MG/ML 2ML VIAL ONE (14:17)
[2023-06-05] MEDS ORDERED: ONDANSETRON INJ 2 MG/ML 2 ML VIAL ONE (14:17)
[2023-06-05] MEDS ORDERED: fentaNYL citrate PF 100 MCG/2 ML VIAL ONE (14:17)
[2023-06-05] MEDS ORDERED: PROPOFOL IV EMULSION 10 MG/ML 20 ML VIAL IV ONE (14:17)
[2023-06-05] MEDS ORDERED: LIDOCAINE 2% 2 ML VIAL/AMP(20MG/ML) INFIL ONE (14:17)
[2023-06-05] MEDS ORDERED: DEXAMETHASONE SOD INJ 4 MG/ML VIAL ONE (14:17)
[2023-06-05] MEDS ORDERED: ATROPINE SULFATE 0.1 MG/ML 10ML SYR IV PRN (14:22)
[2023-06-05] MEDS ORDERED: ePHEDrine sulfate 50 MG/ML AMP IV PRN (14:22)
[2023-06-05] MEDS ORDERED: fentaNYL citrate PF 100 MCG/2 ML VIAL IV PRN (14:22)
[2023-06-05] MEDS ORDERED: ONDANSETRON INJ 2 MG/ML 2 ML VIAL IV PRN (14:22)
--- NOTE | 2023-06-05 14:22 | Anesthesiology Consultation ---
Date of Service June 05, 2023 Assessment & Plan ASA ASA3 Proposed Anesthesia Anesthesia Type: General Risk / Benefits Reviewed With: PT / POA / Parent / Guardian, Accepts Plan and Informed Consent Obtained History Surgery Operation Date: 06/05/23 08:20 Proposed Procedures p Cystoscopy, Right Retrograde Pyelogram, Right Stent Placement, Possible Ureteroscopy, Laser Lithotripsy Stone Treatment - Hai Sam, DO Height/Weight Height: 5 ft 9 in Weight: 74.7 kg Allergies Allergy/AdvReac Type Severity Reaction Status Date / Time No Known Drug Allergies Allergy 0 Verified 06/04/23 16:36 Medications Home Medications Medication Instructions Recorded Confirmed Last Taken acetaminophen 325 mg tablet 650 mg PO Q4 PRN Fever Or Pain 06/04/23 06/04/23 Unknown (Tylenol) apixaban 5 mg tablet (Eliquis) 5 mg PO BID 06/04/23 06/04/23 Unknown buspirone 5 mg tablet 5 mg PO BID 06/04/23 06/04/23 Unknown diclofenac sodium 1 % topical gel 2 g topical QID PRN Pain 06/04/23 06/04/23 Unknown finasteride 5 mg tablet 5 mg PO QAM 06/04/23 06/04/23 Unknown metformin 500 mg tablet 500 mg PO QAM 06/04/23 06/04/23 Unknown [id number]-lotstnnd-[id number] 1 tab PO DAILY 06/04/23 06/04/23 Unknown tablet (Multivitamin 50 Plus tablet) ondansetron HCl 4 mg tablet 4 mg PO Q8 PRN Nausea 06/04/23 06/04/23 Unknown sertraline 25 mg tablet 25 mg PO HS 06/04/23 06/04/23 Unknown simvastatin 80 mg tablet 80 mg PO HS 06/04/23 06/04/23 Unknown solifenacin 5 mg tablet 5 mg PO HS 06/04/23 06/04/23 Unknown valsartan 160 mg tablet 160 mg PO QAM 06/04/23 06/04/23 Unknown Active Medications Generic Name Dose Route Start Last Admin Trade Name Freq PRN Reason Stop Dose Admin Amlodipine Besylate 5 mg 06/05/23 09:00 06/05/23 08:43 Amlodipine Besylate 5 Mg Tab PO 07/05/23 08:59 5 mg DAILY VEL Administration Finasteride 5 mg 06/05/23 09:00 06/05/23 08:43 Finasteride 5 Mg Tab PO 07/05/23 08:59 5 mg DAILY VEL Administration Parenteral Electrolytes 1,000 mls @ 80 mls/hr 06/04/23 13:30 06/05/23 13:10 Plasma-Lyte A Ph 7.4 IV 07/04/23 13:29 0 mls/hr .[id number] VEL Infusion Ceftriaxone Sodium 1,000 mg/ 50 mls @ 100 mls/hr 06/04/23 13:30 06/05/23 13:11 Dextrose IV 06/06/23 13:29 100 mls/hr Q24H VEL Administration Protocol Lactated Ringer's 1,000 mls @ 15 mls/hr 06/05/23 13:15 06/05/23 13:39 Lr IV 07/05/23 13:14 15 mls/hr .Q24H VEL Administration Insulin Aspart 0 units 06/04/23 16:30 06/05/23 12:04 Insulin Aspart Per Unit Charge SC 07/04/23 16:29 Not Given ACHS VEL Sertraline HCl 25 mg 06/05/23 09:00 06/05/23 08:43 Sertraline Hcl 50 Mg Tablet PO 07/05/23 08:59 25 mg DAILY VEL Administration Simvastatin 80 mg 06/05/23 09:00 06/05/23 08:44 Simvastatin 80 Mg Tab PO 07/05/23 08:59 80 mg DAILY VEL Administration Tamsulosin HCl 0.4 mg 06/05/23 09:00 06/05/23 08:44 Tamsulosin Hcl 0.4 Mg Cap PO 07/05/23 08:59 0.4 mg QAM VEL Administration Valsartan 160 mg 06/05/23 09:00 06/05/23 08:45 Valsartan 80 Mg Tab PO 07/05/23 08:59 160 mg DAILY VEL Administration NPO Date Last Intake of Fluids: 06/04/23 Time Last Intake of Fluids: 07:00 Date Last Intake of Solids: 06/03/23 Time Last Intake of Solids: 18:00 Past Medical History Medical History BPH (benign prostatic hyperplasia) Diabetes mellitus with neuropathy HTN (hypertension) Exercise / Class Metabolic Activity II 4-5 Yardwork/Stairs/Walk up hill Past Surgical History Surgical History S/P rotator cuff repair H/O nasal septoplasty S/P TAVR (transcatheter aortic valve replacement) (2021) Past Anesthesia History No Hx of Anesthesia Complications and No Family Hx of Anesthesia Complications History of PONV No Hx of PONV and No Hx of Motion Sickness Social History Smoking Status: Never smoker Do You Dip or Chew Tobacco: No Hx Alcohol Use: No Hx Substance Use: No substance use type: does not use Review of Systems denies fever/cough/ colds/ chest pain/ SOB/ SANTY denies SANTY Physical Exam Vital Signs Last Vital Signs Temp 36.7 C 06/05/23 13:25 Pulse 83 06/05/23 13:25 Resp 16 06/05/23 13:25 BP 192/74 H 06/05/23 13:25 Pulse Ox 98 06/05/23 13:25 O2 Del Method Room Air 06/05/23 13:25 ENMT Mouth: no TMJ abnormality and no dentition abnormality Thyromental Distance: > or= 3.5 Finger Breadths Mallampati Class: II Neck neck extension not limited Respiratory normal respiratory effort; no respiratory distress Auscultation: lungs clear to auscultation bilaterally Cardiovascular Rate/Rhythm: regular rate and regular rhythm Neurologic moves all extremities Psychiatric Orientation: alert and oriented x 3 Testing Laboratory Results 06/05/23 04:17 06/05/23 04:17 PT 11.9 Seconds (9.0-12.0) 06/04/23 10:44 INR 1.1 (0.9-1.1) 06/04/23 10:44 APTT 31 Seconds (21-31) 06/04/23 10:44 Urine Color Yellow 06/04/23 10:30 Urine Appearance Cloudy (Clear) A 06/04/23 10:30 Urine pH 5.5 (4.5-7.5) 06/04/23 10:30 Ur Specific [place] 1.019 (1.000-1.030) 06/04/23 10:30 Urine Protein Negative (Negative) 06/04/23 10:30 Urine Glucose (UA) 1+ (Negative) H 06/04/23 10:30 Urine Ketones Negative (Negative) 06/04/23 10:30 Urine Nitrite Negative (Negative) 06/04/23 10:30 Ur Leukocyte Esterase Negative (Negative) 06/04/23 10:30 Urine WBC (Auto) 1-5 /hpf (0-5) 06/04/23 10:30 Urine RBC (Auto) >30 /hpf (0-4) H 06/04/23 10:30 U Hyaline Cast (Auto) 1-5 /lpf (0-5) 06/04/23 10:30 U Epithel Cells (Auto) 5-10 /lpf (0-5) H 06/04/23 10:30 Urine Bacteria (Auto) Negative (Negative) 06/04/23 10:30 06/05/23 06/05/23 06/05/23 13:30 10:54 07:19 POC Glucose 78 93 105 H
[2023-06-05] MEDS: ceFAZolin 2000MG 2,000 MG/15 ML SYR IV ONE (14:53)
[2023-06-05] MEDS ORDERED: ceFAZolin 330 MG/ML 1 GM VIAL ONE (15:01)
[2023-06-05] MEDS: DIATRIZOATE MEGLUMINE 30% 100ML VIAL INSTIL ONE (15:10)
[2023-06-05] MEDS ORDERED: METOPROLOL TARTRATE 1 MG/ML VIAL IV ONE (15:20)
--- NOTE | 2023-06-05 15:27 | Operative Report ---
PG Post Operative Report Pre & Post Diagnosis Operation Date: 06/05/23 08:20 Pre-Op Diagnosis: Right ureteral stone Hydronephrosis Post-Op Diagnosis: Right ureteral stone Hydronephrosis I identified the patient and participated in the time-out.: Yes Procedure Operation Date: 06/05/23 08:20 Actual Procedures Cystoscopy with Urethral Dilation. Evacuation/removal of debris/foreign body. Right Ureteroscopy, Right Retrograde Pyelogram, Basket stone Extraction, Ureteral dilation, and Right Stent Placement. (Right) - Hai Sam, Surgeon Hai Sam, II, DO Physics Tutor None Estimated Blood Loss 1 Findings Consistent with Post-Op Diagnosis Narrowing of the urethra with irregular prostate with large lateral lobes with fusion of the lateral lobes. Possible previous false passage or resection. Large distal ureteral stone. Ureteral orifice stricture. Dilated and Stone removed. Specimens Stone Fragments Drains 6 Fr Multilength 20 Fr [place] Tip catheter Anesthesia Type General Complications none Disposition Disposition: Recovery Room Indications Patient with bothersome stones. Risks and benefits discussed at length. Description of Procedure Patient was consented and brought back to the operating room. Patient was placed under anesthesia in the supine position and moved to the dorsal lithotomy position. Patient was prepped and draped in the regular sterile fashion. A time out was completed. A 30degree Cystoscope was placed into the urethra and advanced. In the bulbar urethra there was a mild area of narrowing this was related. Patient had an irregular appearance within the prostate with large lateral lobes that were fused causing significant irritation and large varicosities. This area also had to be dilated in order to allow the scope to enter into the bladder. Possible previous resection versus previous trauma with possible false passage found within the prostatic urethra. This was improved after the fusion of the lateral lobes was released. Minor areas of irritation and bleeding were noted after the release of the fusion. Attention was then taken into the bladder. The bladder was examined. The UO's were identified. There was a small amount of debris in the base of the bladder. This was flushed out. After flush/extraction of the debris/possible stone material the right UO was able to be identified. The stone was found to be impacted into a significantly narrowed right UO. Attempts to grasp the stone with a grasper was unable to adequately grasp the stone. Utilizing a 5 [place] open-ended catheter the stone was able to be manipulated back into the distal ureter. Once this was completed the UO was assessed and found to be severely narrowed. This area was dilated. The 5 [place] open-ended catheter was then able to be advanced. The UO was cannulized with a catheter and a retrograde pyelogram was completed. A wire was then placed. The Rigid ureteroscope was taken into the ureter. The stone was identified. After dilating the stone was able to be easily grasped and removed from the distal ureter without major issue. A 0-tip stone basket was utilized. The stone was then sent for pathologic analysis. The scope was replaced in the ureter. The entire area was once again examined. No residual large fragments or areas of concern were noted. The scope was slowly removed with the wire left in place. Contrast was placed through the scope for a pyelogram to assist in stent placement. The entire ureter was examined as the scope was slowly removed. No obstructions or other areas of concern were noted. With the wire in place, a 6 Fr Double J stent was placed. It was confirmed with fluoroscopy. With the stent in place, the bladder was emptied. There was some mild areas of irritation. The urethra had multiple areas of inflammation and irritation. The base of the bladder was found to be significantly inflamed. Due to this and the known fusion of the prostatic lobes it was decided to maintain a catheter for short period of time to allow adequate drainage. A wire was then placed into the bladder and in order to allow a catheter replaced over the wire. The scope was removed. A 20 [place] tip catheter was placed over the wire into the bladder and set to drainage. The patient was cleaned, aroused from anesthesia, and transferred to the pacu in stable condition having tolerated the procedure well with no complications. I was present and participated in all aspects of the procedure. The patient will be monitored in the PACU until transferred. Will plan to have patient have repeat imaging in approximately 2 to 3 weeks. Will assess bladder and prostate at that time. May need to consider further assessment of the bladder and prostate. Will await results and decide on stent removal in the office. Will likely plan for approximately 3 to 4 weeks to have stent removal. I attest to the content of the Intraoperative Record and any orders documented therein. Any exceptions are noted below.
--- NOTE | 2023-06-05 15:42 | Communication Note ---
Date of Service: June 05, 2023 Towards the end of the case, the patient had a HR up t0 120s and appeared irregular. He was given 2.5 mg of IV lopressor. In PACU, he was found to be in afib with a HR in the 70s on 12 lead. pt BP is stable. I contacted the hospitalist and to continue with telemetry.
--- NOTE | 2023-06-05 15:51 | Fluoroscopy Report ---
FL retrograde includes kub CLINICAL HISTORY: RIGHT STENT COMPARISON STUDY: CT of the abdomen and pelvis June 04, 2023. FLUOROSCOPY TIME: 26 seconds. FLUOROSCOPIC IMAGES: 2 FINDINGS: Fluoroscopy was provided during right retrograde pyelogram with right ureteral stent placem ent. The stent appears appropriately positioned. IMPRESSION: Fluoroscopy provided during right retrograde pyelogram with right ureteral stent placeme nt. ACT 112: Negative or not required by law. Electronically signed by: Hermann Lazo M.D. 06/05/2023 3:50 PM
--- NOTE | 2023-06-05 15:54 | Anesthesiology Progress Note ---
Date of Service June 05, 2023 Anesthesia Post Procedure Vital Signs Vital Signs: Temp Pulse Pulse Resp BP Pulse Ox O2 Del Method 06/05/23 15:45 36.4 C L 71 16 159/74 H 98 Room Air 06/05/23 15:35 74 14 155/65 H 98 Room Air 06/05/23 15:25 36.3 C L 72 10 L 130/64 94 Room Air 06/05/23 13:25 36.7 C 83 16 192/74 H 98 Room Air 06/05/23 10:52 36.5 C 55 L 16 187/72 H 98 Room Air 06/05/23 07:28 65 06/05/23 07:18 36.5 C 98 H 18 172/74 H 98 Room Air 06/05/23 03:34 36.6 C 53 L 18 125/62 97 Room Air 06/04/23 23:02 36.6 C 63 18 169/71 H 97 Room Air 06/04/23 21:59 61 06/04/23 21:41 66 06/04/23 18:34 66 18 161/98 H 06/04/23 17:04 62 18 166/75 H 06/04/23 16:25 59 L Transfer of Care Handoff Completed per policy Notes Mental Status: alert / awake / arousable and participated in evaluation Patient Amnestic to Procedure: Yes Nausea / Vomiting: adequately controlled Pain: adequately controlled Airway Patency, RR, SpO2: stable & adequate BP & HR: see Notes below (see communication note) Hydration State: stable & adequate Anesthetic Complications: no major complications apparent and Pt Satisfied with anesthetic care
[2023-06-05] MEDS: METOPROLOL TARTRATE 25 MG TAB PO SCH (20:20)
[2023-06-06 07:24] LABS: Basophils # (auto) 0.01 K/uL (0.00-0.20); Basophils % (auto) 0.1 %; Hematocrit (blood only) 35.2 % (42.0-52.0); Hemoglobin 12.1 g/dl (14.0-18.0); Immature Granulocytes # (auto) 0.07 K/uL (0.01-0.20); Immature Granulocytes % (auto) 0.8 %; Lymphocytes # (auto) 0.64 K/uL (1.20-3.40); Lymphocytes % (auto) 7.5 %; Mean Corpuscular Hemoglobin 29.7 pg (25.0-34.0); Mean Corpuscular Hgb Conc 34.4 g/dL (32.0-36.0); Mean Corpuscular Volume 86.3 fL (80.0-100.0); Mean Platelet Volume 11.5 fL (9.4-12.4); Monocytes # (auto) 0.49 K/uL (0.11-0.59); Monocytes % (auto) 5.8 %; Neutrophils # (auto) 7.29 K/uL (1.40-6.50); Neutrophils % (auto) 85.8 %; Platelet Count 149 K/uL (130-400); RDW Coefficient of Variation 13.4 % (11.5-14.5); RDW Standard Deviation 42.1 fL (36.4-46.3); Red Blood Count 4.08 M/uL (4.70-6.10)
[2023-06-06] MEDS: hydrALAZINE HCL 20 MG/ML VIAL IV STA (07:39)
[2023-06-06 07:59] LABS: Calcium 8.5 mg/dl (8.6-10.3); Creatinine Clr Calc Pharmacy 65.9 ml/min; Est GFR (African American) 93.5 ml/min; Est GFR (Non-African American) 80.6 ml/min; Potassium 4.2 mmol/L (3.5-5.1)
[2023-06-06] MEDS: metFORMIN HCL ER 500 MG TABCR PO SCH (08:36)
--- NOTE | 2023-06-06 09:45 | Urology Progress Note ---
Date of Service June 06, 2023 Assessment & Plan (1) Right ureteral stone: (2) Hydronephrosis: Plan 87yo M admitted with right flank pain, chills, and nausea secondary to a 6mm obstructing R UVJ stone with mod-severe hydro. - POD#1 s/p Cystoscopy with Urethral Dilation, Evacuation/removal of debris/foreign body, Right Ureteroscopy, Right Retrograde Pyelogram, Basket stone Extraction, Ureteral dilation, and Right Stent Placement with Dr. Sam. 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 - Feeling well, tolerating the stent with minimal bother. - Afebrile, hypertensive. - Labs today - WBC 8.50, Hemoglobin 12.1, Creatinine 0.82. - UA not infected appearing. - On empiric Ceftriaxone. - Washburn draining light red urine. - No plan for further intervention. - Continue Washburn catheter for now. Can likely remove in the next 1-2 days. If he remains inpatient, can do void trial prior to discharge. Otherwise, we can arrange in the urology clinic. - Continue supportive care and antibiotic therapy. - Continue tamsulosin and finasteride. - Will arrange outpatient follow-up with our service for continued care and stent removal. - Urology will follow peripherally. Please call with any further questions or concerns. Admission and Anticipated Discharge Date Admission Date: June 04, 2023 Subjective Pt examined at bedside this AM. Awake, resting in bed on arrival. No acute distress. Tolerating the stent with minimal bother. Denies f/c/n/v. Washburn intact and draining light red urine. Review of Systems Constitutional: as per Subjective / HPI Genitourinary: + as per Subjective / HPI Physical Exam Constitutional: no acute distress Respiratory: no respiratory distress and no labored breathing Skin: No visible rashes or lesions to exposed skin areas Neurologic: awake Psychiatric: Orientation: alert and cooperative Genitourinary: Washburn intact Results & Data Vital Signs (Past 12 Hours) Vital Signs Temp Pulse Pulse Resp BP BP Pulse Ox 06/06/23 07:44 169/68 H 06/06/23 07:20 36.6 C 71 19 207/84 H 96 06/06/23 01:42 36.4 C L 69 16 174/94 H 97 06/05/23 23:04 80 06/05/23 22:12 36.3 C L 90 22 189/87 H 96 O2 Del Method 06/06/23 07:44 06/06/23 07:20 Room Air 06/06/23 01:42 Room Air 06/05/23 23:04 06/05/23 22:12 Room Air PG Care Time/CCT Total # of Minutes Spent Total Time Spent with Patient: Total time spent is greater than 50% in coordination of care (as documented) at patient's floor/unit and/or counseling patient: Coding Level of Care Code 09922 SUB INP/OBS CARE 2/35MIN Diagnoses Right ureteral stone N20.1 Hydronephrosis N13.30
--- NOTE | 2023-06-06 15:12 | Hospitalist Progress Note ---
Date of Service June 06, 2023 Assessment & Plan (1) Nephrolithiasis: Plan: Urology consultation and recommendations appreciated. He underwent cystoscopy with right ureteral stone extraction and placement of right ureter stent yesterday, June 04. Urology consultation and recommendations appreciated. IV fluids have been discontinued. On admission CTA/P revealed a 6mm obstructing R UVJ stone with mod-severe hydro. UA was not infected appearing. He was treated with rocephin. He does not require heparin drip bridging. Eliquis was temporarily held and can be restarted today, June 05. He is on Flomax and IV fluids have been discontinued. (2) Diabetes mellitus with neuropathy: Plan: ADA diet. Metformin has been restarted. Sliding scale coverage as needed. He is insulin marylin and basal insulin therapy started on admission has been discontinued. (3) Permanent atrial fibrillation: Plan: Eliquis was held on admission and has been restarted today, June 05. Telemetry (4) S/P TAVR (transcatheter aortic valve replacement): Plan: Stable. (5) BPH (benign prostatic hyperplasia): Plan: Finasteride continued. Flomax has been added (6) HTN (hypertension): Plan: Stable. Continue amlodipine and valsartan. Plan Hopeful discharge to home tomorrow, June 06 Admission and Anticipated Discharge Date Admission Date: June 06, 2023 Subjective Alert and oriented. No distress. Blood pressure was quite elevated this morning and he required a dose of intravenous hydralazine. Blood pressure is much better now and if this recurs he will be started on oral hydralazine. I spoke to his daughter Zayda by phone. She was informed that he will probably go home tomorrow, June 06, with home health services. Metformin has been restarted. Hemoglobin is stable. Urology performed cystoscopy with stone extraction and right ureter stent placement yesterday, June 04. Review of Systems 2 Review of Systems: Constitutional-no fever or chills ENT-no blurred vision, no double vision, no epistaxis, no sore throat Respiratory-no cough, no wheezing, no shortness of breath Cardiac-no palpitations, no chest pain, no syncope GI-no nausea, vomiting, diarrhea, melena, hematochezia -no urinary retention, no urinary incontinence, no dysuria Musculoskeletal-no joint pain, no muscle tenderness Skin-no bruising, no rashes, no pruritus Neuro-no isolated weakness, no paresthesia, no weakness Psych-no depression, no anxiety Physical Exam 2 Physical Exam: General-alert and oriented x3, no fever, no chills HEENT-head atraumatic and normocephalic, pupils equal and reactive to light, extraocular muscles intact Neck-no lymphadenopathy or thyromegaly, trachea midline Chest-clear to auscultation. No rales, wheezing or rhonchi Cardiac-irregular rhythm, controlled rate, normal S1 and S2 Abdomen-normal bowel sounds, nontender, no hepatosplenomegaly Extremities-no cyanosis, clubbing, or edema Neuro-cranial nerves II through XII intact, motor and sensory function within normal limits, strength symmetrical, no focal deficits Psych-normal affect, normal mood Results & Data Results & Data Vital Signs (Past 12 Hours) Vital Signs Temp Pulse Resp BP BP Pulse Ox O2 Del Method 06/06/23 11:15 36.6 C 64 18 151/59 H 98 Room Air 06/06/23 07:44 169/68 H 06/06/23 07:20 36.6 C 71 19 207/84 H 96 Room Air Laboratory Results 06/06/23 06:41 06/06/23 06:41 PG Care Time/CCT Total # of Minutes Spent Total Time Spent with Patient: Total time spent is greater than 50% in coordination of care (as documented) at patient's floor/unit and/or counseling patient: Coding Level of Care Code 38909 SUB INP/OBS CARE 3/50MIN Diagnoses Nephrolithiasis N20.0 Diabetes mellitus with neuropathy E11.40 Permanent atrial fibrillation I48.21 S/P TAVR (transcatheter aortic valve replacement) Z95.2 BPH (benign prostatic hyperplasia) N40.0 HTN (hypertension) I10
[2023-06-07 07:32] LABS: Basophils # (auto) 0.04 K/uL (0.00-0.20); Basophils % (auto) 0.5 %; Eosinophils # (auto) 0.08 K/uL (0.00-0.50); Eosinophils % (auto) 1.1 %; Hematocrit (blood only) 37.3 % (42.0-52.0); Immature Granulocytes # (auto) 0.03 K/uL (0.01-0.20); Immature Granulocytes % (auto) 0.4 %; Lymphocytes # (auto) 1.28 K/uL (1.20-3.40); Lymphocytes % (auto) 17.1 %; Mean Corpuscular Hemoglobin 28.8 pg (25.0-34.0); Mean Corpuscular Hgb Conc 32.2 g/dL (32.0-36.0); Mean Corpuscular Volume 89.4 fL (80.0-100.0); Mean Platelet Volume 11.5 fL (9.4-12.4); Monocytes # (auto) 0.63 K/uL (0.11-0.59); Monocytes % (auto) 8.4 %; Neutrophils # (auto) 5.42 K/uL (1.40-6.50); Neutrophils % (auto) 72.5 %; Platelet Count 147 K/uL (130-400); RDW Coefficient of Variation 13.9 % (11.5-14.5); RDW Standard Deviation 45.3 fL (36.4-46.3); Red Blood Count 4.17 M/uL (4.70-6.10); White Blood Count 7.48 K/ul (4.8-10.8)
[2023-06-07 07:42] LABS: Calcium 8.5 mg/dl (8.6-10.3); Creatinine Clr Calc Pharmacy 51.9 ml/min; Est GFR (African American) 75.5 ml/min; Est GFR (Non-African American) 65.2 ml/min; Potassium 4.3 mmol/L (3.5-5.1)
[2023-06-07] MEDS: hydrALAZINE 10 MG TAB PO SCH (10:23)
[2023-06-07] MEDS: CIPROFLOXACIN 500 MG TAB PO SCH (10:24)
--- NOTE | 2023-06-07 10:25 | Urology Progress Note ---
Date of Service June 07, 2023 Assessment & Plan (1) Right ureteral stone: (2) Hydronephrosis: Plan 87yo M admitted with right flank pain, chills, and nausea secondary to a 6mm obstructing R UVJ stone with mod-severe hydro. - POD#2 s/p Cystoscopy with Urethral Dilation, Evacuation/removal of debris/foreign body, Right Ureteroscopy, Right Retrograde Pyelogram, Basket stone Extraction, Ureteral dilation, and Right Stent Placement with Dr. Sam. 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 - Feeling well, tolerating the stent with minimal bother. - Afebrile, hypertensive. - Labs today - WBC 7.48, Hemoglobin 12.0, Creatinine 1.04. - UA not infected appearing. - On PO Cipro - Washburn draining pink urine. Plan - - OK to remove Washburn catheter and monitor for void. - He may continue to have some hematuria due to the stent. Continue to monitor. - Anticoagulation per primary team. - Continue supportive care and antibiotics. - Continue Flomax and Finasteride. - Will arrange outpatient follow-up with our service. - Urology will follow peripherally. Please call with any further questions or concerns. Admission and Anticipated Discharge Date Admission Date: June 06, 2023 Subjective Pt examined at bedside this AM. Awake, resting in bed on arrival. No acute distress. Tolerating the stent with minimal bother. Denies f/c/n/v. Washburn intact and draining pink urine. Denies abdominal, flank, and suprapubic pain at present. Review of Systems Constitutional: as per Subjective / HPI Gastrointestinal: as per Subjective / HPI Genitourinary: + as per Subjective / HPI Physical Exam Constitutional: no acute distress Respiratory: no respiratory distress and no labored breathing Neurologic: awake Psychiatric: Orientation: alert, oriented to person and cooperative Results & Data Vital Signs (Past 12 Hours) Vital Signs Temp Pulse Resp BP BP Pulse Ox O2 Del Method 06/07/23 07:14 36.5 C 58 L 19 190/83 H 94 Room Air 06/07/23 02:49 36.6 C 65 18 175/63 H 97 Room Air 06/06/23 22:42 36.4 C L 59 L 20 183/74 H 97 Room Air PG Care Time/CCT Total # of Minutes Spent Total Time Spent with Patient: Total time spent is greater than 50% in coordination of care (as documented) at patient's floor/unit and/or counseling patient: Coding Level of Care Code 86732 SUB INP/OBS CARE 2/35MIN Diagnoses Right ureteral stone N20.1 Hydronephrosis N13.30
--- NOTE | 2023-06-07 11:48 | Hospitalist Progress Note ---
Date of Service June 07, 2023 Assessment & Plan (1) Nephrolithiasis: Plan: Urology consultation and recommendations appreciated. He underwent cystoscopy with right ureteral stone extraction and placement of right ureter stent on June 04. Postoperative day #2. Urology consultation and recommendations appreciated. IV fluids have been discontinued. On admission, CTA/P revealed a 6mm obstructing R UVJ stone with mod-severe hydro. UA was not infected appearing. He was treated with rocephin and switched to oral Cipro today, June 06. Eliquis was temporarily held and was restarted on June 05. He is on Flomax and IV fluids have been discontinued. (2) Diabetes mellitus with neuropathy: Plan: ADA diet. Metformin has been restarted. Sliding scale coverage as needed. He is insulin marylin and basal insulin therapy started on admission has been discontinued. (3) Permanent atrial fibrillation: Plan: Eliquis was held on admission and has been restarted on June 05. Telemetry (4) S/P TAVR (transcatheter aortic valve replacement): Plan: Stable. (5) BPH (benign prostatic hyperplasia): Plan: Finasteride continued. Flomax has been added (6) HTN (hypertension): Plan: Stable. Continue amlodipine and valsartan. Plan Hopefully home later today, June 06 Admission and Anticipated Discharge Date Admission Date: June 06, 2023 Subjective Alert and oriented. No distress. Blood pressure is elevated again and oral hydralazine replaces valsartan and. Heart rate is controlled with metoprolol. Urology entry noted. Washburn catheter will be removed today. He is now on oral Cipro therapy. Hopefully he can go home later today. Review of Systems 2 Review of Systems: Constitutional-no fever or chills ENT-no blurred vision, no double vision, no epistaxis, no sore throat Respiratory-no cough, no wheezing, no shortness of breath Cardiac-no palpitations, no chest pain, no syncope GI-no nausea, vomiting, diarrhea, melena, hematochezia -Washburn catheter in place with tea colored urine Musculoskeletal-no joint pain, no muscle tenderness Skin-no bruising, no rashes, no pruritus Neuro-no isolated weakness, no paresthesia, no weakness Psych-no depression, no anxiety Physical Exam 2 Physical Exam: General-alert and oriented x3, no fever, no chills HEENT-head atraumatic and normocephalic, pupils equal and reactive to light, extraocular muscles intact Neck-no lymphadenopathy or thyromegaly, trachea midline Chest-clear to auscultation. No rales, wheezing or rhonchi Cardiac-irregular rhythm, controlled rate, normal S1 and S2 Abdomen-normal bowel sounds, nontender, no hepatosplenomegaly Extremities-no cyanosis, clubbing, or edema Neuro-cranial nerves II through XII intact, motor and sensory function within normal limits, strength symmetrical, no focal deficits Psych-normal affect, normal mood Results & Data Results & Data Vital Signs (Past 12 Hours) Vital Signs Temp Pulse Pulse Resp BP BP Pulse Ox 06/07/23 10:59 36.6 C 59 L 19 168/69 H 97 06/07/23 08:11 61 06/07/23 07:14 36.5 C 58 L 19 190/83 H 94 06/07/23 02:49 36.6 C 65 18 175/63 H 97 O2 Del Method 06/07/23 10:59 Room Air 06/07/23 08:11 06/07/23 07:14 Room Air 06/07/23 02:49 Room Air Laboratory Results 06/07/23 06:26 06/07/23 06:26 PG Care Time/CCT Total # of Minutes Spent Total Time Spent with Patient: Total time spent is greater than 50% in coordination of care (as documented) at patient's floor/unit and/or counseling patient: Coding Level of Care Code 82055 SUB INP/OBS CARE 3/50MIN Diagnoses Nephrolithiasis N20.0 Diabetes mellitus with neuropathy E11.40 Permanent atrial fibrillation I48.21 S/P TAVR (transcatheter aortic valve replacement) Z95.2 BPH (benign prostatic hyperplasia) N40.0 HTN (hypertension) I10
--- NOTE | 2023-06-07 12:55 | Discharge Summary ---
Date of Service June 07, 2023 Admission HPI Per Admitting Provider Jeff is an 87-year-old male with a past medical history of BPH, hypertension, permanent A-fib on apixaban, and s/p TAVR [facility] assisted living resident. Woke up this morning with chills, nasuea, fatigue and R flank pain. History of kidney stone in January which was nonobstructive at the time. Just moved here in March from [facility]. [place] normal yesterday NO chest pain or chest pressure No shortness of breath No dysuria. +polyuria. Hx of afib. Took blood thinner this morning. (took all AM meds) Hx of tavr. Denies heart failure, denies [place]. Has not yet established with cardiology locally, would like an outpatient referral if possible. Medical History: Reviewed Medications: Reviewed. NKDA Surgical History: Reviewed Family history: Reviewed Allergies: Reviewed Social History: No tobacco use. No etoh. Code Status: DNR/DNI Daughter contact #: [phone] Evelyn Oliveira CThead: No acute findings EKG: afib, no acute ischemic change Principal Diagnosis Right UVJ calculus with obstruction, right hydronephrosis, hematuria Discharge Exam General-alert and oriented x3, no fever, no chills HEENT-head atraumatic and normocephalic, pupils equal and reactive to light, extraocular muscles intact Neck-no lymphadenopathy or thyromegaly, trachea midline Chest-clear to auscultation. No rales, wheezing or rhonchi Cardiac-irregular rhythm, controlled rate, normal S1 and S2 Abdomen-normal bowel sounds, nontender, no hepatosplenomegaly Extremities-no cyanosis, clubbing, or edema GUFoley catheter in place with tea colored urine Neuro-cranial nerves II through XII intact, motor and sensory function within normal limits, strength symmetrical, no focal deficits Psych-normal affect, normal mood Discharge Data Allergies Allergy/AdvReac Type Severity Reaction Status Date / Time No Known Drug Allergies Allergy 0 Verified 06/04/23 16:36 Consultations 06/04/23 12:35 ED Decision to Admit Stat 06/04/23 13:19 Consult Urology Routine Procedures Performed Operation Date: 06/05/23 08:20 Actual Procedures p Cystoscopy, Right Retrograde Pyelogram, Basket stone removal, Right Ureteroscopy(Right) - Hai H. Sam, DO s Right Stent Placement(Right) - Hai Sam DO Ordered Studies 06/04/23 10:47 CT abd pelvis wo con Stat CT head/brain wo con Stat 06/05/23 [place] retrograde includes kub Routine 06/05/23 06:45 US renal/blad retro comp Routine Hospital Course (1) Nephrolithiasis: Urology consultation and recommendations appreciated. He underwent cystoscopy with right ureteral stone extraction and placement of right ureter stent on June 04. Postoperative day #2. Urology consultation and recommendations appreciated. IV fluids have been discontinued. On admission, CTA/P revealed a 6mm obstructing R UVJ stone with mod-severe hydro. UA was not infected appearing. He was treated with rocephin and switched to oral Cipro today, June 06. Eliquis is temporarily on hold. He is on Flomax and Proscar and IV fluids have been discontinued. (2) Diabetes mellitus with neuropathy: ADA diet. Metformin has been restarted. Sliding scale coverage as needed. He is insulin marylin and basal insulin therapy started on admission has been discontinued. (3) Permanent atrial fibrillation: Eliquis was held on admission and will be held for 1 more week. Telemetry (4) S/P TAVR (transcatheter aortic valve replacement): Stable. (5) BPH (benign prostatic hyperplasia): Finasteride continued. Flomax has been added (6) HTN (hypertension): Systolic blood pressure has been running high. Hydralazine has been started which replaces valsartan hand. Continue metoprolol which previously replaced amlodipine Plan Home todayJune 06 Total Time Total Time Spent Total Time Spent (In Minutes): 45 minutes Discharge Plan Discharge Items Patient Disposition: Home - Home Health Services Reason For Visit: 6 MM UVJ W HYDRO Discharge Diagnosis: Right UVJ ureteral calculus with obstruction, right hydronephrosis, gross hematuria Activity: Resume your previous activity Non-emergency contact: Primary Care Provider and Urologist Call non-emergency contact if: you have any medication questions and your symptoms worsen Follow-up/Referrals: Hai Sam DO [Physician] - [facility] [Primary Care Provider] - Diet: Carb Consistent or DM2 and Heart Healthy Addtl Attending Provider Instructions: Metoprolol and hydralazine replace amlodipine and valsartan. Continue Cipro antibiotic for 1 more week. Continue tamsulosin and finasteride as requested by urology Addtl [employer] Provider Instructions: Please call the urology office at [phone] with any questions, concerns or need to reschedule appointments for any reason. We are happy to assist you. You are scheduled for a follow-up CT scan on 06/20/23 at [facility]. While you have a ureteral stent in place: Some discomfort is normal. Certain movements may trigger pain or a feeling that you need to urinate. You may also feel mild soreness or pressure before or during urination. These symptoms should go away a few days after the stent is removed. Your urine may be slightly pink or red. This is due to bleeding caused by minor irritation from the stent. This may happen on and off while you have the stent, it is not harmful and is to be expected. Medication to help minimize discomfort or bladder spasms, or to prevent infection may be prescribed. Take this as directed. Drink plenty of fluids to help flush out your urinary tract. If you go home with a catheter, wash with soapy water and a fresh washcloth twice daily. We recommend mild bar soap such as Dial or Dove. When to call [facility] Urology at [phone]: Your urine contains heavy blood clots or your catheter stops draining You are constantly leaking urine Fever of 101F or higher, chills, nausea, or vomiting Your pain is not relieved with medication The end of the stent comes out of your urethra Pending Studies at Discharge: No Stand-Alone Forms: My [facility], Smoking Cessation Medications and DC Order Prescriptions: New hydralazine 10 mg Tablet 10 mg PO QID Qty: 120 0RF ciprofloxacin HCl 500 mg Tablet 500 mg PO BID Qty: 20 0RF tamsulosin 0.4 mg Capsule 0.4 mg PO QAM Qty: 2 0RF metoprolol tartrate 25 mg Tablet 25 mg PO BID Qty: 60 0RF Continued buspirone 5 mg tablet 5 mg PO BID metformin 500 mg tablet 500 mg PO QAM acetaminophen [Tylenol] 325 mg Tablet 650 mg PO Q4 PRN (Reason: Fever Or Pain) ondansetron HCl 4 mg tablet 4 mg PO Q8 PRN (Reason: Nausea) simvastatin 80 mg tablet 80 mg PO HS sertraline 25 mg tablet 25 mg PO HS finasteride 5 mg tablet 5 mg PO QAM Multivitamin 50 Plus Tablet 1 tab PO DAILY solifenacin 5 mg tablet 5 mg PO HS diclofenac sodium 1 % gel 2 g TOPICAL QID PRN (Reason: Pain) Eliquis 5 mg tablet 5 mg PO BID Discontinued valsartan 160 mg tablet 160 mg PO QAM Discharge Orders: Discharge Order (Routine); Ordered 06/07/23 Ordered By: Jesus Molina Admission Data Admit Date/Time: 06/06/23 13:21 Attending Provider: Jesus Molina Admit Provider: Jesus Molina Primary Care Provider: Janelle [facility] Other Providers: Dima Turner; Hai Sam Coding Level of Care Code 91811 INP/OBS DISCH >30 MIN Diagnoses Nephrolithiasis N20.0 Diabetes mellitus with neuropathy E11.40 Permanent atrial fibrillation I48.21 S/P TAVR (transcatheter aortic valve replacement) Z95.2 BPH (benign prostatic hyperplasia) N40.0 HTN (hypertension) I10
--- NOTE | 2023-06-07 12:55 | Electrocardiogram Report ---
Test Reason : Blood Pressure : / mmHG Vent. Rate : 074 BPM Atrial Rate : 000 BPM P-R Int : 000 ms QRS Dur : 094 ms QT Int : 406 ms P-R-T Axes : 000 027 015 degrees QTc Int : 450 ms Atrial fibrillation Cannot rule out Anterior infarct , age undetermined Abnormal ECG No previous ECGs available Confirmed by Darin Sylvester ([id number]) on 06/07/2023 12:54:52 PM Referred By: Confirmed By:Darin Sylvester
--- NOTE | 2023-06-07 13:35 | XCELERA ---
[id number]
--- NOTE | 2023-06-07 15:08 | Electrocardiogram Report ---
Test Reason : Blood Pressure : / mmHG Vent. Rate : 081 BPM Atrial Rate : 078 BPM P-R Int : 000 ms QRS Dur : 090 ms QT Int : 438 ms P-R-T Axes : 000 033 012 degrees QTc Int : 508 ms Atrial fibrillation Abnormal ECG When compared with ECG of 04-JUN-2023 10:39, (unconfirmed) No significant change Confirmed by Darin Sylvester ([id number]) on 06/07/2023 3:08:36 PM Referred By: [facility] of Confirmed By:Darin Sylvester
--- NOTE | 2023-06-07 15:09 | Electrocardiogram Report ---
Test Reason : Blood Pressure : / mmHG Vent. Rate : 079 BPM Atrial Rate : 085 BPM P-R Int : 000 ms QRS Dur : 090 ms QT Int : 452 ms P-R-T Axes : 000 047 062 degrees QTc Int : 518 ms Poor data quality, interpretation may be adversely affected Atrial fibrillation Abnormal ECG When compared with ECG of 05-JUN-2023 15:25, (unconfirmed) No significant change was found Confirmed by Darin Sylvester ([id number]) on 06/07/2023 3:09:40 PM Referred By: [facility] of Confirmed By:Darin Sylvester
--- NOTE | 2023-06-07 15:10 | Electrocardiogram Report ---
Test Reason : Blood Pressure : / mmHG Vent. Rate : 076 BPM Atrial Rate : 138 BPM P-R Int : 000 ms QRS Dur : 092 ms QT Int : 460 ms P-R-T Axes : 000 048 058 degrees QTc Int : 517 ms Atrial fibrillation Abnormal ECG When compared with ECG of 05-JUN-2023 15:31, (unconfirmed) No significant change was found Confirmed by Darin Sylvester ([id number]) on 06/07/2023 3:10:04 PM Referred By: [facility] of Confirmed By:Darin Sylvester
[2023-06-17 15:52] LABS: Component 2 DNR; Source RIGHT URETERAL STONE
== END 2023-06-07 18:38 | disposition home health service (06) | DRG 660 ==
LOC: ED 10:17 → EDINP 10:17 → SUATTDRO 13:24 → 2S 15:30